=== PATIENT | female | born 1995 | race Hispanic/Latino ===

== ENCOUNTER 2022-07-30 18:00 | Inpatient (IN) | payer MEDICAID, OTHER ==
[2022-07-30] MEDS ORDERED: Methylergonovine 0.2 MG/ML VIAL IM PRN (19:27)
[2022-07-30] MEDS ORDERED: Acetaminophen 500 MG TAB PO PRN (19:27)
[2022-07-30] MEDS ORDERED: HYDROcodone/Acetaminophen 5/325 mg Tablet PO PRN (19:27)
[2022-07-30] MEDS ORDERED: Ondansetron PF 4 MG/2 ML Vial IVP PRN (19:27)
[2022-07-30] MEDS ORDERED: NS w/ Oxytocin 30 units 500 ML IV SCH (19:27)
[2022-07-30] MEDS ORDERED: hydrALAZINE 20 MG/ML VIAL SLOW IVP PRN (19:27)
[2022-07-30] MEDS ORDERED: Promethazine HCl 25 MG/ML VIAL IM PRN (19:27)
[2022-07-30] MEDS ORDERED: Diphenoxylate HCl/Atropine Tablet PO PRN (19:27)
[2022-07-30] MEDS ORDERED: Ibuprofen 800 MG TAB PO PRN (19:27)
[2022-07-30] MEDS ORDERED: Carboprost 250 MCG/ML AMP IM PRN (19:27)
[2022-07-30 19:51] VITALS: BMI 37.4
[2022-07-30] MEDS: Lactated Ringer's 1,000 ML IV SCH (20:30)
[2022-07-30] MEDS: Misoprostol 100 MCG TAB VAG SCH (20:55)
[2022-07-30 21:24] LABS: Hemoglobin 11.6 g/dL (12.0-15.5); Mean Corpuscular Hemoglobin 28.5 pg (27.0-33.0); Mean Corpuscular Volume 86.5 fl (81.6-98.3); Mean Platelet Volume 11.4 fl (7.4-10.4); Platelet Count 215 10x3/uL (150-450); RBC Distribution Width 15.5 % (11.5-14.5); Red Blood Cell (RBC) Count 4.07 10x6/uL (3.90-5.03); White Blood Cell (WBC) Count 7.9 10x3/uL (3.5-10.5)
[2022-07-30 21:59] LABS: SARS-CoV-2 NAA Rapid Test Not Detected (NotDetected)
[2022-07-30 22:57] LABS: Syphilis Antibody Nonreactive (Nonreactive); Syphilis Antibody Index 0.11 S/CO (<1.00 Non-Reactive)
[2022-07-30 22:58] LABS: HBSAg Index 0.15 S/CO (0-0.99); Hep B Surf Ag Non-Reactive S/CO (NonReactive)
[2022-07-31] MEDS: Misoprostol 100 MCG TAB VAG SCH ×3 (00:04→07:15)
[2022-07-31] MEDS: Butorphanol Tartrate 1 MG/ML VIAL SLOW IVP PRN ×2 (03:16→11:11)
[2022-07-31] MEDS ORDERED: Misoprostol 100 MCG TAB ONE (07:01)
[2022-07-31] MEDS: Lidocaine 1% (PF) 30 ML VIAL SC PRN ×2 (15:48→16:06)
[2022-07-31] MEDS ORDERED: Lidocaine 1% (PF) 30 ML VIAL ONE (16:05)
[2022-07-31] MEDS ORDERED: Preparation H Ointment 28 GM TUBE PR PRN (20:02)
[2022-07-31] MEDS ORDERED: Lanolin Ointment 7 GM TUBE TOP PRN (20:02)
[2022-07-31] MEDS ORDERED: HYDROcodone/Acetaminophen 5/325 mg Tablet PO PRN (20:02)
[2022-07-31] MEDS ORDERED: Milk Of Magnesia 30 ML UDCUP PO PRN (20:02)
[2022-07-31] MEDS ORDERED: hydrALAZINE 20 MG/ML VIAL SLOW IVP PRN (20:02)
[2022-07-31] MEDS ORDERED: Ondansetron PF 4 MG/2 ML Vial IVP PRN (20:02)
[2022-07-31] MEDS ORDERED: Promethazine HCl 25 MG/ML VIAL IM PRN (20:02)
[2022-07-31] MEDS ORDERED: Boostrix 0.5 ML (Tdap) VIAL (>/=7 yrs of age) IM ONE (20:02)
[2022-07-31] MEDS ORDERED: diphenhydrAMINE 25 MG CAP PO PRN (20:02)
[2022-07-31] MEDS ORDERED: Benzocaine-Menthol 82.5 ML CAN TOP PRN (20:02)
[2022-07-31] MEDS ORDERED: Bisacodyl 10 MG SUPP PR PRN (20:02)
[2022-07-31] MEDS ORDERED: Ferrous Sulfate 325 MG TAB PO SCH (20:15)
[2022-07-31] MEDS ORDERED: NS w/ Oxytocin 30 units 500 ML IV SCH (20:15)
[2022-07-31] MEDS: HYDROcodone/Acetaminophen 5/325 mg Tablet PO PRN (20:44)
[2022-07-31] MEDS: Lactated Ringer's 1,000 ML IV SCH (21:25)
[2022-07-31] MEDS ORDERED: Ibuprofen 800 MG TAB PO SCH (22:00)
[2022-07-31] MEDS: Docusate 100 MG CAP PO SCH (22:19)
[2022-08-01] MEDS: HYDROcodone/Acetaminophen 5/325 mg Tablet PO PRN (00:53)
[2022-08-01] MEDS: Ibuprofen 800 MG TAB PO SCH ×3 (03:18→20:24)
[2022-08-01] MEDS: Ferrous Sulfate 325 MG TAB PO SCH (07:19)
[2022-08-01] MEDS: Docusate 100 MG CAP PO SCH ×2 (08:05→20:24)
[2022-08-01] MEDS: Prenatal Vitamin 1 TAB PO SCH (08:05)
[2022-08-02] MEDS: Ibuprofen 800 MG TAB PO SCH ×3 (03:39→12:13)
[2022-08-02] MEDS: Ferrous Sulfate 325 MG TAB PO SCH (07:08)
[2022-08-02 07:59] VITALS: BP 121/59; TEMP 97.8
[2022-08-02] MEDS: Prenatal Vitamin 1 TAB PO SCH (08:32)
[2022-08-02] MEDS: Docusate 100 MG CAP PO SCH (08:32)
== END 2022-08-02 17:12 | disposition home or self-care (01) | DRG 807 ==
LOC: CSHLD 19:17 → CSHPP 07-31 19:43
PROVIDERS: ADMIT Family Medicine; ATTEND Family Medicine
PROC: 10E0XZZ Delivery of Products of Conception, External Approach (ICD-10-PCS; principal; 2022-07-31)
PROC: 10907ZC Drainage of Amniotic Fluid, Therapeutic from Products of Conception, Via Natural or Artificial Opening (ICD-10-PCS; 2022-07-31)
PROC: 3E0P7VZ Introduction of Hormone into Female Reproductive, Via Natural or Artificial Opening (ICD-10-PCS; 2022-07-31)
PROC: 0W8NXZZ Division of Female Perineum, External Approach (ICD-10-PCS; 2022-07-31)
PROC: 0UQMXZZ Repair Vulva, External Approach (ICD-10-PCS; 2022-07-31)
DX: O24.420 Gestational diabetes mellitus in childbirth, diet controlled (principal); Z37.0 Single live birth; Z3A.39 39 weeks gestation of pregnancy; Z20.822 Contact with and (suspected) exposure to COVID-19; O66.0 Obstructed labor due to shoulder dystocia; O70.0 First degree perineal laceration during delivery
CPT/HCPCS: 36416; 85027; 86780; 86850; 86900; 86901; 87340; J0595; J2001; J2590; J7120; U0002

== ENCOUNTER 2022-08-11 01:04 | Observation (INO) | payer MEDICAID ==
[2022-08-11] MEDS ORDERED: Acetaminophen 500 MG TAB ONE (02:01)
[2022-08-11] MEDS ORDERED: Ketorolac Tromethamine 30 MG/ML VIAL ONE (02:02)
[2022-08-11] MEDS ORDERED: Acetaminophen 500 MG TAB PO PRN (06:07)
[2022-08-11] MEDS ORDERED: Ketorolac Tromethamine 30 MG/ML VIAL IM PRN ×2 (06:19→20:00)
[2022-08-11] MEDS ORDERED: Ibuprofen 800 MG TAB PO SCH (12:00)
[2022-08-11 12:46] VITALS: BP 111/59; TEMP 98.2
[2022-08-11 15:19] VITALS: BMI 35.3
== END 2022-08-11 15:40 | disposition home or self-care (01) ==
LOC: CSHERS 01:04 → CSHERHOLD 03:21 → CSHPP 10:20
PROVIDERS: ADMIT Family Medicine; ATTEND Family Medicine
DX: O9A.23 Injury, poisoning and certain other consequences of external causes complicating the puerperium (principal); S31.41XA Laceration without foreign body of vagina and vulva, initial encounter; T81.31XA Disruption of external operation (surgical) wound, not elsewhere classified, initial encounter; Y83.8 Other surgical procedures as the cause of abnormal reaction of the patient, or of later complication, without mention of misadventure at the time of the procedure
CPT/HCPCS: 86850; 86900; 86901; 96372; 99284; G0378; J1885